=== PATIENT | male | born 1985 | race Two or more races ===

== ENCOUNTER 2019-08-11 23:26 | Emergency (ER) | payer OTHER, MEDICAID ==
[~2019-08-11] VITALS: Ht 157.5 cm; Wt 51.7 kg
[2019-08-12 01:18] LABS: Urine Bacteria NONE SEEN /hpf (None Seen); Urine Blood TRACE /uL (Negative); Urine Mucus FEW (None Seen); Urine WBC 1 /hpf (0 - 3)
[2019-08-12 02:55] LABS: Hemoglobin 7.4 g/dL (13.5-17.5); Mean Corpuscular Hemoglobin 29.6 pg (28.0-32.0); Mean Corpuscular Hgb Conc. 33.5 g/dL (32.0-36.0); Mean Corpuscular Volume 88.5 fL (80.0-100.0); Platelet Count (auto) 323 10^3/uL (140-450); Red Blood Cells 2.49 10^6/uL (4.5-5.90); Red Cell Distribution Width 18.1 % (11.8-14.3); White Blood Cell 5.1 10^3/uL (4.4-10.8)
[2019-08-12 02:58] LABS: Albumin 2.3 g/dL (3.4-5.0); Band Neutrophils % (manual) 0; Basophils % (manual) 0 (0.0-2.0); Blast Cells 0; Calcium 7.2 mg/dL (8.5-10.1); Metamyelocytes % 0; Myelocytes % 0; Potassium 3.7 mmol/L (3.5-5.1); Promyelocytes % 0; Reactive Lymphocytes 0
[2019-08-12 03:04] LABS: Bilirubin, Total 1.8 mg/dL (0.2-1.0)
[2019-08-12] MEDS ORDERED: ONDANSETRON HCL 4 MG/2 ML VIAL IV ONE (03:15)
[2019-08-12] MEDS ORDERED: MORPHINE SULF INJ 2 MG/ML SYRINGE 1ML IV ONE (03:15)
[2019-08-12 06:00] VITALS: BP 98/72
[2019-08-12] MEDS ORDERED: MORPHINE SULFATE 4 MG/ML SYR/VIAL IV ONE (06:00)
[2019-08-12 06:12] LABS: Eosinophils % (manual) 5 (0-7); Lymphocytes % (manual) 55 (10.0-50.0); Monocytes % (manual) 5 (0-12)
== END 2019-08-12 06:25 | disposition home or self-care (01) ==
LOC: ER 23:26
DX: R60.9 Edema, unspecified (principal); G89.29 Other chronic pain; M79.604 Pain in right leg; M79.605 Pain in left leg; D56.0 Alpha thalassemia; D53.9 Nutritional anemia, unspecified; K75.9 Inflammatory liver disease, unspecified; R79.89 Other specified abnormal findings of blood chemistry
CPT/HCPCS: 36415; 80053; 81001; 83880; 84484; 85007; 85027; 93005; 93970; 96374; 96375; 96376; 99284; J2270; J2405

== ENCOUNTER 2019-08-13 19:56 | Inpatient (IN) | payer OTHER, MEDICAID ==
[~2019-08-13] VITALS: Ht 157.5 cm; Wt 68.1 kg
[2019-08-13 21:06] LABS: Hemoglobin 7.1 g/dL (13.5-17.5)
[2019-08-13 21:10] LABS: Hematocrit 21.2 % (41.0-53.0); Mean Corpuscular Hemoglobin 29.1 pg (28.0-32.0); Mean Corpuscular Hgb Conc. 33.3 g/dL (32.0-36.0); Mean Corpuscular Volume 87.5 fL (80.0-100.0); Platelet Count (auto) 364 10^3/uL (140-450); Red Blood Cells 2.42 10^6/uL (4.5-5.90); Red Cell Distribution Width 18.6 % (11.8-14.3); White Blood Cell 14.5 10^3/uL (4.4-10.8)
[2019-08-13 21:12] LABS: Basophils % (manual) 0 (0.0-2.0); Blast Cells 0; Metamyelocytes % 0; Myelocytes % 0; Promyelocytes % 0; Reactive Lymphocytes 0
[2019-08-13 21:31] LABS: Calcium 7.7 mg/dL (8.5-10.1); Potassium 4.3 mmol/L (3.5-5.1)
[2019-08-13 21:34] LABS: Albumin 2.4 g/dL (3.4-5.0); BUN/Creatinine Ratio 34.8
[2019-08-13 21:37] LABS: Bilirubin, Total 2.1 mg/dL (0.2-1.0); Total Protein 9.4 g/dL (6.4-8.2)
[2019-08-13] MEDS ORDERED: ALBUMIN 25% 100 ML IV ONE (22:45)
[2019-08-13] MEDS ORDERED: MORPHINE SULF INJ 2 MG/ML SYRINGE 1ML IV ONE (22:45)
[2019-08-13] MEDS ORDERED: FUROSEMIDE 20 MG/2 ML VIAL IV ONE (22:45)
[2019-08-13] MEDS ORDERED: ONDANSETRON HCL 4 MG/2 ML VIAL IV ONE (22:45)
[2019-08-13] MEDS ORDERED: IOHEXOL 350 MG/ML 100ML IJ ONE (22:53)
[2019-08-13 22:57] LABS: Band Neutrophils % (manual) 2; Eosinophils % (manual) 1 (0-7); Lymphocytes % (manual) 55 (10.0-50.0); Monocytes % (manual) 10 (0-12)
[2019-08-14] MEDS ORDERED: DOCUSATE SOD 100 MG CAP PO PRN (01:15)
[2019-08-14] MEDS ORDERED: ACETAMINOPHEN 325 MG TAB PO PRN (01:15)
[2019-08-14] MEDS: ONDANSETRON HCL 4 MG/2 ML VIAL IV PRN (02:20)
[2019-08-14] MEDS: MORPHINE SULFATE 4 MG/ML SYR/VIAL IV PRN ×4 (02:21→17:58)
[2019-08-14 03:30] VITALS: BP 93/63
--- NOTE | 2019-08-14 03:30 | NUR ---
MS admit from ER ART RECINOS admitted to tele/MS after SBAR received. Patient oriented to Arely Quezada, RN primary RN, unit, room, bed, and unit policies regarding patient care and visiting hours. Patient weighed by bedscale and encouraged to call if they need something. All questions and concerns addressed, patient verbalized understanding. Note:patient alert and oriented x 4, on room air with even and unlabored respirations. IV intact and patent. Patient turns independently in bed . Urinal at bedside within reach. Bed low locked position with side rails up x2 and call light within reach. Instructed on POC and to call for assistance PRN. Will continue care.
--- NOTE | 2019-08-14 03:45 | NUR ---
Home Medications patient states his stepfather Mohan will bring in list of medications.
[2019-08-14 05:00] VITALS: BP 93/63
--- NOTE | 2019-08-14 07:00 | NUR ---
Closing Note Patient resting in bed on room air with even and unlabored respirations, no s/s of distress. IV intact and patent. Patient was medicated for bilateral leg pain 06/06. Bed low locked position with side rails up x 2 and call light within reach. Endorsed care to dayshift RN.
--- NOTE | 2019-08-14 08:33 | NUR ---
OPENING SHIFT NOTE: PATIENT RESTING IN BED EVEN AND UNLABORED RESPIRATIONS NOTED. BED IN LOWEST LOCKED POSITION. PATIENT DENIES ANY PAIN AT THIS TIME. PERSONAL CANE AT BEDSIDE, PATIENT STATES HE "HASN'T BEEN GETTING UP MUCH LATELY." EDUCATED ON HOW TO USE REMOTE AND TELEPHONE. PATIENT VERBALIZED UNDERSTANDING. WILL CONTINUE TO MONITOR.
--- NOTE | 2019-08-14 08:46 | NUR ---
PATIENT REPORTS FATHER IS TO BRING IN HOME MEDICATIONS.
[2019-08-14 09:00] VITALS: BP 90/56
--- NOTE | 2019-08-14 09:47 | NUR ---
TELECOMMUNICATIONS OFFICER AT BEDSIDE, BUBBLE STUDY PERFORMED BY THIS RN.
--- NOTE | 2019-08-14 12:10 | NUR ---
CARE ENDORSED TO MAHAD CALHOUN.
--- NOTE | 2019-08-14 12:10 | NUR ---
ASSUMED CARE OF PATIENT
[2019-08-14 13:00] VITALS: BP 90/57
--- NOTE | 2019-08-14 13:00 | NUR ---
MD ROUNDS DR LY AT BEDSIDE DISCUSSING POC WITH PATIENT. ALL QUESTIONS/CONCERNS ANSWERED. NEW ORDERS RECEIVED/CARRIED OUT. WILL CONTINUE TO MONITOR
[2019-08-14] MEDS ORDERED: FOLIC ACID 1 MG TAB PO ONE (14:00)
[2019-08-14] MEDS ORDERED: FUROSEMIDE 20 MG/2 ML VIAL IV ONE (14:00)
--- NOTE | 2019-08-14 15:19 | NUR ---
LAB LAB CALLED RE: TROPONIN LEVEL 0.951. WILL NOTIFY
--- NOTE | 2019-08-14 15:19 | NUR ---
NOTIFIED YIELD ENGINEER, MIGUEL KING, OF TROPONIN LEVEL. WILL CONTINUE TO MONITOR
[2019-08-14] MEDS ORDERED: CARVEDILOL 3.125 MG TAB PO ONE (15:45)
[2019-08-14] MEDS: DOBUTamine 1000MCG/ML 250 ML IV SCH (16:51)
--- NOTE | 2019-08-14 16:55 | NUR ---
assessment Per consult no PCP. Laurel Castano to assign PCP. Addendum: 08/14/19 at 1656 by Laurel ALVAREZ Amended: Links added.
[2019-08-14 17:00] VITALS: BP 84/55
--- NOTE | 2019-08-14 19:30 | NUR ---
Opening Shift Note Assumed care of patient, awake and alert oriented x4. No S/S of distress/SOB noted. Bed is in lowest locked position with bed rails up x2 and call light is within reach of the patient. Instructed on POC and to call for assist PRN.
[2019-08-14 22:00] VITALS: BP 94/67
--- NOTE | 2019-08-14 22:32 | NUR ---
CRITICAL LAB VALUE: RECEIVED CALL FOR CRITICAL LAB TROPONIN VALUE. PREVIOUS TROPONIN VALUE WAS 0.951, RECEIVED CALL FOR A TROPONIN OF 1.000. VALUE SLIGHTLY WENT UP. MD'S ARE AWARE OF PATIENTS ELEVATING TROPONIN VALUE. PATIENT HAS NO CHEST PAIN.
[2019-08-14] MEDS: CARVEDILOL 3.125 MG TAB PO SCH (22:58)
--- NOTE | 2019-08-14 23:43 | NUR ---
6 BEATS OF A-FIB: RECEIVED CALL FROM HAL FROM PLATFORM LOADER. MADE AWARE THAT PATIENT HAD 6 BEATS OF A-FIB BUT CONVERTED BACK TO SINUS RHYTHM WITH SOME PVCS. NO CHEST PAIN NOTED AT THIS TIME.
[2019-08-15] MEDS: MORPHINE SULFATE 4 MG/ML SYR/VIAL IV PRN ×2 (00:06→06:06)
[2019-08-15 05:00] VITALS: BP 84/53
[2019-08-15 06:26] LABS: Hematocrit 20.6 % (41.0-53.0)
[2019-08-15 06:31] LABS: Mean Corpuscular Hemoglobin 28.8 pg (28.0-32.0); Mean Corpuscular Hgb Conc. 33.2 g/dL (32.0-36.0); Mean Corpuscular Volume 86.7 fL (80.0-100.0); Platelet Count (auto) 383 10^3/uL (140-450); Red Blood Cells 2.38 10^6/uL (4.5-5.90); Red Cell Distribution Width 18.6 % (11.8-14.3); White Blood Cell 4.8 10^3/uL (4.4-10.8)
[2019-08-15 06:41] LABS: INR 1.96 (0.9-1.15)
[2019-08-15 06:45] LABS: Chloride 98 mmol/L (98-107); Potassium 4.2 mmol/L (3.5-5.1); Sodium 132 mmol/L (136-145)
--- NOTE | 2019-08-15 06:45 | NUR ---
CRITICAL VALUE: Lab called to report critical lab value of 6.9 hemoglobin. Paged hospitalist regarding lab value. Waiting for call back.
[2019-08-15 06:47] LABS: Hemoglobin 6.9 g/dL (13.5-17.5)
[2019-08-15 06:48] LABS: Band Neutrophils % (manual) 0; Basophils % (manual) 0 (0.0-2.0); Blast Cells 0; Metamyelocytes % 0; Myelocytes % 0; Promyelocytes % 0
[2019-08-15 06:52] LABS: Alanine Aminotransferase 33 U/L (16-61); Albumin 2.9 g/dL (3.4-5.0); Alkaline Phosphatase 85 U/L (45-117); Anion Gap 8 (5-15); Aspartate Aminotransferase 63 U/L (15-37); Bilirubin, Total 3.4 mg/dL (0.2-1.0); Blood Urea Nitrogen 28 mg/dL (7-18); Calcium 8.3 mg/dL (8.5-10.1); Carbon Dioxide 26 mmol/L (21-32); Cholesterol < 50 mg/dL (< 200); GFR African American 144 mL/min; GFR Non-African American 119 mL/min; Glucose 108 mg/dL (74-106); HDL Cholesterol 12 mg/dL (40-59); LDL Cholesterol 31 mg/dL (< 100); Magnesium 1.5 mg/dL (1.6-2.6); Total Protein 9.1 g/dL (6.4-8.2); Triglycerides 73 mg/dL (< 150)
[2019-08-15 06:55] VITALS: BP 84/58
--- NOTE | 2019-08-15 07:07 | NUR ---
Hospitalist called back regarding critical lab value: Hospitalist sherry called back, updated about patient history and situation and reported critical hemoglobin value of 6.9. Hospitalist ordered to have H&H repeated in [address] orders and notify day shift nurse.
--- NOTE | 2019-08-15 07:11 | NUR ---
Closing note: Patient resting in bed with breaths even and unlabored. No s/s of distress SOB noted. Last blood pressure was 84/58, heart rate 116. Report given to day shift nurse.
[2019-08-15 07:18] LABS: Eosinophils % (manual) 4 (0-7); Lymphocytes % (manual) 62 (10.0-50.0); Monocytes % (manual) 5 (0-12); Reactive Lymphocytes 1
--- NOTE | 2019-08-15 07:45 | NUR ---
CRITICAL LAB VALUE: RECEIVED CALL FOR CRITICAL LAB TROPONIN VALUE. PREVIOUS TROPONIN VALUE WAS 1.000, RECEIVED CALL FOR A TROPONIN OF 1.000. MD'S ARE AWARE OF PATIENTS ELEVATING TROPONIN VALUE. PATIENT HAS NO CHEST PAIN.
--- NOTE | 2019-08-15 07:45 | NUR ---
Opening Shift Note Assumed care of patient, awake and alert. No S/S of distress/SOB or pain. Instructed on POC and to call for assist PRN, bed in locked and lowest position and call light within reach. Will continue to monitor for changes Q1hr and PRN.
[2019-08-15 09:00] VITALS: BP 84/58
[2019-08-15] MEDS: FUROSEMIDE 20 MG/2 ML VIAL IV SCH (10:00)
[2019-08-15] MEDS: CARVEDILOL 3.125 MG TAB PO SCH ×2 (10:00→21:59)
[2019-08-15] MEDS: ASPirin-EC 81 mg tab PO SCH (10:29)
[2019-08-15] MEDS: FOLIC ACID 1 MG TAB PO SCH (10:30)
[2019-08-15] MEDS ORDERED: KETOROLAC TROMETH 30 MG/ML 1ML VIAL IV ONE (10:30)
[2019-08-15] MEDS: MAGNESIUM SULFATE 1GM/100ML 100 ML IV SCH ×3 (10:56→16:32)
[2019-08-15 11:02] LABS: Hematocrit 22.2 % (41.0-53.0); Hemoglobin 7.4 g/dL (13.5-17.5)
[2019-08-15 12:47] LABS: % Iron Saturation 116.4 % (20-55)
[2019-08-15 13:00] VITALS: BP 74/55
[2019-08-15] MEDS ORDERED: IOHEXOL 300 MG/ML 100ML BOTTLE IJ ONE (13:04)
[2019-08-15] MEDS ORDERED: OMNIPAQUE ORAL SOLN 500ml 12mg/ml PO ONE (13:42)
[2019-08-15] MEDS: DOBUTamine 1000MCG/ML 250 ML IV SCH (16:00)
--- NOTE | 2019-08-15 16:25 | NUR ---
MD ROUNDS DR GIMENEZ AT BEDSIDE DISCUSSING POC WITH PATIENT. PATIENT TO FOLLOW UP OUTPATIENT WITH DR GIMENEZ
[2019-08-15 17:00] VITALS: BP 86/62
[2019-08-15] MEDS: KETOROLAC TROMETH 30 MG/ML 1ML VIAL IV PRN ×2 (17:11→23:07)
[2019-08-15 22:00] VITALS: BP 93/66
[2019-08-16] VITALS (10 sets, daily range): BP systolic 84–93; BP diastolic 59–69
[2019-08-16] MEDS: DOBUTamine 1000MCG/ML 250 ML IV SCH (00:36)
--- NOTE | 2019-08-16 01:20 | NUR ---
PAIN PATIENT C/O BURNING PAIN IN CHEST 06/06, NOT RADIATING ANYWHERE. PATIENT NAUSEOUS AND VOMITED. ECG DONE, NO CHANGES FROM PREVIOUS ECG. VITAL SIGNS B/P 90/63 mmHG, RR 20bpm, HR 98bpm, O2 SAT 100% ON 2 L N/C. MEDICATED PATIENT WITH ZOFRAN 4MG. WILL CONTINUE TO MONITOR
[2019-08-16] MEDS: ONDANSETRON HCL 4 MG/2 ML VIAL IV PRN (01:37)
[2019-08-16] MEDS: KETOROLAC TROMETH 30 MG/ML 1ML VIAL IV PRN (05:22)
[2019-08-16 06:43] LABS: Hematocrit 19.2 % (41.0-53.0)
[2019-08-16 06:57] LABS: BUN/Creatinine Ratio 38.1; Calcium 8.2 mg/dL (8.5-10.1); Magnesium 2.3 mg/dL (1.6-2.6); Potassium 4.3 mmol/L (3.5-5.1)
[2019-08-16 06:59] LABS: Hemoglobin 6.5 g/dL (13.5-17.5)
--- NOTE | 2019-08-16 07:01 | NUR ---
low hemoglobin hgb 6.5, paged hospitalist, waiting for call back. Addendum: 08/16/19 at 0707 by Sofiya Severino RN DMITRI SANTOS CALLED RECEIVED ORDER TO TRANSFUSE 1 UNIT OF [facility].
[2019-08-16 07:28] LABS: Ferritin > 1650.0 ng/mL (10-322)
[2019-08-16 07:55] LABS: Folate (Folic Acid) 12.57 ng/mL (5.38-24)
--- NOTE | 2019-08-16 08:19 | NUR ---
PAIN PT VERBALIZED TORADOL DID NOTHING WITH HIS PAIN, PAIN LEVEL 10/10. PAGED HOSPITALIST WAITING FOR CALL BACK.
[2019-08-16] MEDS: FUROSEMIDE 20 MG/2 ML VIAL IV SCH (10:00)
[2019-08-16] MEDS: CARVEDILOL 3.125 MG TAB PO SCH ×2 (10:00→21:39)
[2019-08-16] MEDS: ASPirin-EC 81 mg tab PO SCH (10:00)
--- NOTE | 2019-08-16 10:07 | NUR ---
BLOOD TRANSFUSION STARTED
[2019-08-16] MEDS: FOLIC ACID 1 MG TAB PO SCH (10:51)
[2019-08-16 11:05] LABS: Urine WBC None Seen /hpf (0 - 3)
--- NOTE | 2019-08-16 11:15 | NUR ---
PT SEEN BY DR. LY MADE AWARE PT IS COMPLAINING OF PAIN AND TORADOL DOES NOT WORK PER PT, BLOOD PRESSURE IS LOW. PER DR. LY SHE WILL CALL DR. CAMACHO.
[2019-08-16 11:27] LABS: Amphetamine Screen, Urine NEGATIVE (NEGATIVE); Barbiturate Scree,Urine NEGATIVE (NEGATIVE); Benzodiazephine Screen, Urine NEGATIVE (NEGATIVE); Cannabinoid Screen, Urine POSITIVE (NEGATIVE); Cocaine Screen, Urine POSITIVE (NEGATIVE); Opiate Scree,Urine POSITIVE (NEGATIVE); Phencyclidine Screen, Urine NEGATIVE (NEGATIVE)
[2019-08-16 11:44] LABS: Urine Amorphous Crystal FEW /hpf (None Seen); Urine Bacteria NONE SEEN /hpf (None Seen); Urine Blood 1+ /uL (Negative); Urine Mucus FEW (None Seen)
[2019-08-16 11:48] LABS: Urine Specific Gravity > 1.050 (1.001-1.035)
--- NOTE | 2019-08-16 11:55 | NUR ---
Dr. Castro made aware pt is asking for pain medicine, bp 92/66, pt requesting to talk to her, per Dr. Castro she will come see the pt.
--- NOTE | 2019-08-16 12:28 | NUR ---
paged Dr. Shaikh Dr. Galicia cancelled the scheduled surgery, paged Dr. Castro if pt can resume diet, waiting for call back.
--- NOTE | 2019-08-16 12:30 | NUR ---
BLOOD TRANSFUSION DONE, NO ADVERSE REACTION NOTED, WILL CONTINUE TO MONITOR.
--- NOTE | 2019-08-16 13:21 | NUR ---
PT SEEN BY DR. CAMACHO AND DR. LY MADE AWARE OF PT'S BP LOW, LASIX AND BP MEDICATION HELD. HE ORDERED TO WEAN PT FROM DOBUTAMINE, PT CAN TAKE PAIN MEDICINE ORDERED, IF SBP <80 GIVE NS 500MLS BOLUS, RESUME CARDIAC DIET.
--- NOTE | 2019-08-16 14:33 | NUR ---
PT IS ASLEEP ON BED RESTING COMFORTABLY.
--- NOTE | 2019-08-16 15:09 | NUR ---
NUTRITION ASSESSMENT NOTES Please refer to link notes of nutrition screen form filed under the intervention section of the plan of care for further details. Est. Needs: 1450 kcal to 1750 kcal (25-30 kcal/kgBW), 59 gms to 71 gms pro (1.0-1.2 gms/kgBW). Will continue to monitor pertinent labs and reassess nutrient need prn Thank you. Addendum: 08/16/19 at [address] Amended: Links added.
[2019-08-16] MEDS: HYDROcodone-ACET 5/325MG TAB PO PRN ×2 (15:10→20:20)
[2019-08-16] MEDS: MIDODRINE HCL 10 MG TAB PO SCH (17:43)
--- NOTE | 2019-08-16 20:20 | NUR ---
Patient is requesting pain medication. Blood pressure is currently at 96/68. Will administer pain medication as per order.
--- NOTE | 2019-08-16 22:45 | NUR ---
Dobutamine drip has been stopped as per order.
--- NOTE | 2019-08-17 02:40 | NUR ---
Patient is request pain medication. Blood pressure is 95/75 with a heart rate of 90. Will administer pain medication.
[2019-08-17] MEDS: HYDROcodone-ACET 5/325MG TAB PO PRN ×2 (02:45→16:52)
[2019-08-17 05:00] VITALS: BP 99/79
[2019-08-17] MEDS: MIDODRINE HCL 10 MG TAB PO SCH ×3 (06:09→17:48)
[2019-08-17 07:04] LABS: Hemoglobin 7.7 g/dL (13.5-17.5)
[2019-08-17 07:06] LABS: Immunoglobulin G, Serum 4170 mg/dL (700-1600)
[2019-08-17 07:12] LABS: Hematocrit 22.4 % (41.0-53.0); Mean Corpuscular Hemoglobin 29.5 pg (28.0-32.0); Mean Corpuscular Hgb Conc. 34.2 g/dL (32.0-36.0); Mean Corpuscular Volume 86.3 fL (80.0-100.0); Platelet Count (auto) 365 10^3/uL (140-450); Red Cell Distribution Width 17.5 % (11.8-14.3); White Blood Cell 8.8 10^3/uL (4.4-10.8)
[2019-08-17 07:24] LABS: Albumin 2.8 g/dL (3.4-5.0); Bilirubin, Direct 0.8 mg/dL (0-0.2)
[2019-08-17 07:27] LABS: Bilirubin, Total 3.8 mg/dL (0.2-1.0); Total Protein 8.8 g/dL (6.4-8.2)
[2019-08-17 07:28] LABS: Potassium 4.3 mmol/L (3.5-5.1)
--- NOTE | 2019-08-17 07:30 | NUR ---
Opening Shift Note RECEIVED REPORT FROM NOC RN. Assumed care of patient, awake and alert. PATIENT ON OXYGEN AT 2 LPM VIA NASAL CANNULA WITH no S/S of distress/SOB or pain. BED IN LOWEST, LOCKED POSITION WITH SIDERAILS UP x2 AND CALL LIGHT WITHIN REACH. Instructed on POC and to call for assist PRN, will continue to monitor for changes Q1hr and PRN.
[2019-08-17 07:37] LABS: Band Neutrophils % (manual) 0; Basophils % (manual) 0 (0.0-2.0); Blast Cells 0; Metamyelocytes % 0; Myelocytes % 0; Promyelocytes % 0; Reactive Lymphocytes 0
[2019-08-17 07:40] LABS: BUN/Creatinine Ratio 33.8; Calcium 7.9 mg/dL (8.5-10.1)
[2019-08-17 09:00] VITALS: BP 92/67
[2019-08-17 09:17] LABS: Hepatitis B Surface Antibody Negative
[2019-08-17 09:52] LABS: Hepatitis A Total Antibody Negative
[2019-08-17] MEDS: FUROSEMIDE 20 MG/2 ML VIAL IV SCH (10:00)
[2019-08-17] MEDS: FOLIC ACID 1 MG TAB PO SCH (10:06)
[2019-08-17] MEDS: CARVEDILOL 3.125 MG TAB PO SCH ×2 (10:07→21:30)
[2019-08-17] MEDS: ASPirin-EC 81 mg tab PO SCH (10:07)
--- NOTE | 2019-08-17 10:50 | NUR ---
I faxed transfer to higher level of care order to [facility], [facility] and [facility].
--- NOTE | 2019-08-17 12:01 | NUR ---
DR. DENNIS AT BEDSIDE. PATIENT DOES NOT WANT DR. DENNIS TO SPEAK TO PATIENT'S FAMILY.
[2019-08-17 12:24] LABS: Eosinophils % (manual) 4 (0-7); Lymphocytes % (manual) 37 (10.0-50.0)
[2019-08-17 12:25] LABS: Monocytes % (manual) 16 (0-12)
[2019-08-17 12:43] LABS: Hepatitis B Surface Antigen Negative (Negative)
[2019-08-17 12:47] LABS: Hepatitis B Core Total AB Negative
[2019-08-17 13:00] VITALS: BP 88/61
[2019-08-17 13:05] LABS: Hepatitis C Antibody Negative (Negative)
--- NOTE | 2019-08-17 13:36 | NUR ---
I called [facility] ([facility]) and spoke with Sofia-provided her with contact information for Dr. Perez as well as the nurse's station-she will review clinical information sent and give me a call back.
--- NOTE | 2019-08-17 14:50 | NUR ---
PATIENT TAKEN TO RADIOLOGY FOR PROCEDURE BY LJ SALGUERO.
--- NOTE | 2019-08-17 15:02 | NUR ---
I called [facility] Mail Service Coordinator Yoselin, she is going to speak with her biomedical photographer and let me know if they are going to authorize this transfer request. I provided her with Dr. Perez's contact information-she will give it to her biomedical photographer-she will give me a call back.
--- NOTE | 2019-08-17 15:37 | NUR ---
I received a call from Yoselin at [facility] letting me know that they are authorizing this transfer request. Authorization number for [facility] is [id number] and authorization for facility is [id number]. I faxed transfer request/clinical information to [facility]-per Yoselin at [facility] that is where patient's power wood sawyer is.
--- NOTE | 2019-08-17 16:23 | NUR ---
I spoke with Tiffanie from [facility], provided her with contact information for Dr. Perez as well as the nurse's station-she will present the information to her MD to see if they would be able to accept this patient. She did say that they have no beds available at this time.
--- NOTE | 2019-08-17 16:45 | NUR ---
assessment Patient is a 34 year old male who is alert and oriented. Patients cognitive abilities are intact. Prior to admission patient lived home with family and functioned independently. Patient informed me he is able to care for his own ADLs. Per patient he has a cane for home use. Patients PCP is Dr Julio. I informed patient of his order to transfer to higher level of care. Patient is aware and agrees to transfer. I informed patient he has a right to speak to a social psychologist regarding all care. I informed patient he has a right to participate in any and all discharge planning. Patient does not have a POA and advanced directive. I have offered patient information on POA and advanced directives. I informed the patient the advantages and benefits of having an Advanced Directive. Patient verbalized understanding and agreed to discharge plan. Addendum: 08/17/19 at 1646 by Laurel ALVAREZ Amended: Links added.
[2019-08-17 17:00] VITALS: BP 86/65
--- NOTE | 2019-08-17 20:59 | NUR ---
Call received from [facility]. Surya stated that [place] become [place] [facility] Patient is to be sent to room 356 B. Accepting physician is Dr. Zain Gamez. The phone number [phone] was given to give report to accepting RNJurgen London also stated to call the [facility] at [phone] for updates on patient's ETA to the facility. Addendum: 08/18/19 at 0248 by Gavin Osei RN Patient's room has been updated to [id number]
--- NOTE | 2019-08-17 21:35 | NUR ---
HOSPITALIST PAGED Hospitalist Spenser has been paged for discharge orders for transfer to [facility]. Spenser stated that the discharge can be done in the morning.
[2019-08-17 21:46] VITALS: BP 90/55
--- NOTE | 2019-08-18 00:45 | NUR ---
Report has been given to Sari Urbano at [facility].
[2019-08-18] MEDS: HYDROcodone-ACET 5/325MG TAB PO PRN (01:06)
--- NOTE | 2019-08-18 01:45 | NUR ---
[facility] has arrived for the patient.
--- NOTE | 2019-08-18 02:07 | NUR ---
Patient has been discharged. The patient will be sent to [place] [address], [place], [id number]
[2019-08-18 02:11] VITALS: BP 85/60
== END 2019-08-18 02:07 | disposition short-term general hospital (02) | DRG 264 ==
LOC: ER 19:59 → OVERFLOW 20:00 → WEST WING 08-14 03:23 → TELE-WESTW 08-14 13:56
PROVIDERS: ADMIT Hospitalist; ATTEND Internal Medicine
PROC: 30233N1 Transfusion of Nonautologous Red Blood Cells into Peripheral Vein, Percutaneous Approach (ICD-10-PCS; 2019-08-16)
PROC: 07B63ZX Excision of Left Axillary Lymphatic, Percutaneous Approach, Diagnostic (ICD-10-PCS; principal; 2019-08-17)
DX: I21.A1 Myocardial infarction type 2 (principal); I50.43 Acute on chronic combined systolic (congestive) and diastolic (congestive) heart failure; D59.1 Other autoimmune hemolytic anemias; D68.9 Coagulation defect, unspecified; I42.0 Dilated cardiomyopathy; C85.90 Non-Hodgkin lymphoma, unspecified, unspecified site; C95.90 Leukemia, unspecified not having achieved remission; I48.91 Unspecified atrial fibrillation; M81.0 Age-related osteoporosis without current pathological fracture; M19.90 Unspecified osteoarthritis, unspecified site; I95.9 Hypotension, unspecified; M54.5 Low back pain; I27.20 Pulmonary hypertension, unspecified; R59.0 Localized enlarged lymph nodes; E83.119 Hemochromatosis, unspecified; I51.9 Heart disease, unspecified; R16.0 Hepatomegaly, not elsewhere classified; Z90.81 Acquired absence of spleen; Z90.49 Acquired absence of other specified parts of digestive tract
CPT/HCPCS: 10022; 36415; 71045; 71275; 74177; 76700; 76942; 77074; 80048; 80053; 80061; 80076; 80307; 81001; 82232; 82607; 82728; 82746; 82784; 83010; 83036; 83540; 83550; 83615; 83735; 83880; 83883; 84443; 84484; 85007; 85014; 85018; 85027; 85379; 85610; 86334; 86335; 86704; 86706; 86708; 86803; 86850; 86900; 86901; 86920; 87081; 87340; 93005; 93306; 96365; 96375; 96376; G0378; J1885; J2405; P9047